=== PATIENT | male | born 1965 | race Two or more races ===

== ENCOUNTER → 2018-12-20 | Outpatient (CLI) | payer OTHER ==
[~2018-12-20] MED LIST: BACLOFEN10 MG PO; TIZANIDINE HCL2 MG PO
== END | disposition home or self-care (01) ==
LOC: NUCLEAR 07:00
DX: I20.9 Angina pectoris, unspecified (principal); I10 Essential (primary) hypertension
CPT/HCPCS: 78452; 93017; A9500; J0153